=== PATIENT | female | born 1935 | race American Indian/Alaskan Native ===

== ENCOUNTER 2023-02-15 17:48 | Inpatient (IN) | payer OTHER, MEDICAID ==
[~2023-02-15] VITALS: Ht 165.1 cm; Wt 71.7 kg
--- NOTE | 2023-02-15 17:52 | NUR ---
PATIENT BIBA TO BED 2
[2023-02-15 18:05] VITALS: BP 169/69
[2023-02-15 18:26] LABS: BASOPHILS % (AUTO) 0.3 % (0.0-2.0); EOSINOPHILS % (AUTO) 0.1 % (0.0-4.0); HEMATOCRIT 38.2 % (36-48); HEMOGLOBIN 12.9 g/dL (12.0-16.0); LYMPHOCYTES # (AUTO) 0.4 K/uL (2.5-16.5); LYMPHOCYTES % (AUTO) 2.8 % (20.5-51.1); MEAN CORPUSCULAR HEMOGLOBIN 30 pg (27-31); MEAN CORPUSCULAR HGB CONC 34 g/dL (33-37); MEAN CORPUSCULAR VOLUME 87.6 fL (80-94); MONOCYTES # (AUTO) 0.4 K/uL (0.8-1.0); MONOCYTES % (AUTO) 2.4 % (1.7-9.3); NEUTROPHILS # (AUTO) 13.9 K/uL (1.8-7.7); NEUTROPHILS % (AUTO) 94.4 % (42.2-75.2); PLATELET COUNT (AUTO) 281 K/uL (140-450); RED BLOOD CELL COUNT(AUTO) 4.36 MIL/uL (4.20-5.40); RED CELL DISTRIBUTION WIDTH 15.4 % (11.6-13.7); WHITE BLOOD COUNT (AUTO) 14.8 K/uL (4.8-10.8)
[2023-02-15 18:50] LABS: ALBUMIN 3.8 g/dL (3.4-5.0); ANION GAP 13.9 (8-16); ASPARTATE AMINOTRANSFERASE 24 U/L (15-37); CARBON DIOXIDE 27.6 mmol/L (21-32); CHLORIDE 101 mmol/L (98-107); CREATININE 1.3 mg/dL (0.6-1.3); GLUCOSE 117 mg/dL (74-106); LIPASE 72 U/L (73-393); POTASSIUM 3.5 mmol/L (3.5-5.1); SODIUM SERUM 139 mmol/L (136-145); TOTAL BILIRUBIN 1.1 mg/dL (0.0-1.0); UREA NITROGEN, BLOOD 26 mg/dL (7-18)
--- NOTE | 2023-02-15 19:35 | NUR ---
Pt taken to CT
[2023-02-15 20:23] LABS: BILIRUBIN,URINE NEGATIVE (NEGATIVE); BLOOD, URINE 2+ (NEGATIVE); COLOR,URINE YELLOW (YELLOW); LEUKOCYTE ESTERASE ,URINE 2+ (NEGATIVE); NITRITE, URINE POSITIVE (NEGATIVE); PH,URINE 7.5 (5.0-9.0); UGLUCOSE NEGATIVE (NEGATIVE)
[2023-02-15 20:30] LABS: APPEARANCE,URINE HAZY (CLEAR)
[2023-02-15 20:38] LABS: RBC,URINE 11-20 (MOD) /HPF (0-5); WBC,URINE TOO MANY TO COUNT /HPF (0-5)
[2023-02-15] MEDS ORDERED: KETOROLAC 15 MG/ML VIAL IVP ONE (21:00)
[2023-02-15] MEDS ORDERED: cefTRIAXone 1,000 MG VIAL ONE (21:29)
[2023-02-15] MEDS ORDERED: ALBUTEROL 0.083% 2.5 MG/3 ML NEBU INH PRN (21:45)
[2023-02-15] MEDS ORDERED: MORPHINE SULFATE 2 MG/ML SYR IVP PRN (21:50)
[2023-02-15] MEDS ORDERED: ZOLPIDEM 10 MG TAB PO PRN (21:50)
[2023-02-15] MEDS ORDERED: ACETAMINOPHEN 325 MG TAB PO PRN (21:50)
[2023-02-15] MEDS ORDERED: DOCUSATE SODIUM 100 MG GELCAP PO PRN (21:50)
[2023-02-15] MEDS ORDERED: POTASSIUM CHLORIDE 10 MEQ TABER PO PRN (21:50)
[2023-02-15] MEDS ORDERED: ONDANSETRON 4 MG/2 ML VIAL IVP PRN (21:50)
[2023-02-15] MEDS ORDERED: NACL 0.9% 1,000 ML IV ONE (21:55)
--- NOTE | 2023-02-15 22:40 | NUR ---
Pt c/o anxiety and discomfort, son by bedside translating. prn ativan given as ordered.
[2023-02-15] MEDS: LORazepam 2 MG/ML VIAL IVP PRN (22:48)
--- NOTE | 2023-02-16 00:05 | NUR ---
Report given to Erasmo WALTON for transfer of care
--- NOTE | 2023-02-16 00:10 | NUR ---
RECEIVED PATIENT FROM ER NURSE VIA [facility] FOR CONTINUITY OF CARE. PIV INTACT AND PATENT, PATIENT IN NO DISTRESS
[2023-02-16 04:00] VITALS: BP 132/62
[2023-02-16 05:25] LABS: BASOPHILS # (AUTO) 0.1 K/uL (0.00-0.22); BASOPHILS % (AUTO) 0.3 % (0.0-2.0); HEMATOCRIT 33.7 % (36-48); HEMOGLOBIN 11.3 g/dL (12.0-16.0); LYMPHOCYTES # (AUTO) 0.4 K/uL (2.5-16.5); LYMPHOCYTES % (AUTO) 1.9 % (20.5-51.1); MEAN CORPUSCULAR HEMOGLOBIN 30 pg (27-31); MEAN CORPUSCULAR HGB CONC 34 g/dL (33-37); MEAN CORPUSCULAR VOLUME 87.7 fL (80-94); MONOCYTES # (AUTO) 0.5 K/uL (0.8-1.0); MONOCYTES % (AUTO) 2.3 % (1.7-9.3); NEUTROPHILS # (AUTO) 20.5 K/uL (1.8-7.7); NEUTROPHILS % (AUTO) 95.5 % (42.2-75.2); PLATELET COUNT (AUTO) 201 K/uL (140-450); RED BLOOD CELL COUNT(AUTO) 3.84 MIL/uL (4.20-5.40); RED CELL DISTRIBUTION WIDTH 15.1 % (11.6-13.7); WHITE BLOOD COUNT (AUTO) 21.4 K/uL (4.8-10.8)
[2023-02-16 06:03] LABS: ANION GAP 15.5 (8-16); CARBON DIOXIDE 24.9 mmol/L (21-32); CHLORIDE 105 mmol/L (98-107); CREATININE 1.5 mg/dL (0.6-1.3); GLUCOSE 110 mg/dL (74-106); POTASSIUM 3.4 mmol/L (3.5-5.1); SODIUM SERUM 142 mmol/L (136-145); UREA NITROGEN, BLOOD 27 mg/dL (7-18)
--- NOTE | 2023-02-16 07:20 | NUR ---
ENDORSED PATIENT TO AM NURSE FOR CONTINUITY OF CARE.PT IS STABLE
[2023-02-16 08:00] VITALS: BP 108/51
--- NOTE | 2023-02-16 09:15 | NUR ---
PATIENT HAS BEEN SCREENED AND CATEGORIZED MODERATE NUTRITION RISK. PATIENT WILL BE SEEN WITHIN 3-5 DAYS OF ADMISSION. REVIEWED BY SHUN LAMAR RD
[2023-02-16] MEDS: TAMSULOSIN 0.4 MG CAP PO SCH (09:26)
[2023-02-16] MEDS: MAG SULF 2000 MG/WATER PREMIX 50 ML IV PRN (09:29)
--- NOTE | 2023-02-16 11:45 | NUR ---
DC PLANNING ATTEMPTED TO SEE PT AT BEDSIDE TO COMPLETE ASSESSMENT, HOWEVER, PT NOT IN ROOM. SW TO FOLLOW
[2023-02-16 12:00] VITALS: BP 123/56
--- NOTE | 2023-02-16 14:08 | NUR ---
AGUS ANTON CALLED FOR F/U PF PATIENT'S STATUS. PATIENT'S SON ([phone]) IS HERE AFTER UROLOGIST SEE PATIENT AND WANT RECEIVE UPDATE PATIENT TREATMENT CARE PLAN FROM PCP. DR. SHAY CONTACT AND LEFT DAUGHTER'S PHONE NUMBER ([phone]). WILL CONTINUE TO MONITOR PATIENT
--- NOTE | 2023-02-16 14:24 | NUR ---
PT. WITH LOW GONZALES SCALE AT MODERATE TO HIGH RISK, CONTINUE TO FOLLOW PRESSURE INJURY PREVENTION INTERVENTIONS. -POSITIONING: TURN AND REPOSITION PATIENT Q 2H OR SOONER USE PILLOWS TO KEEP BONY PROMINENCES FROM DIRECT CONTACT WITH SURFACES USE REPOSITIONING WEDGES TO PROVIDE 30-DEGREE ANGLE FOR SIDE LYING POSITIONS OFFLOADING OR FOAM DRESSING TO ALL TUBING TO PREVENT MEDICAL DEVICES RELATED PRESSURE INJURY -RE-EVALUATING AND MANAGING INCONTINENCE MONITOR SKIN CONDITION DURING POSITION CHANGE DO NOT MASSAGE REDNESS, BONY PROMINENCES FREQUENT MARELY-CARE AND PROVIDE BARRIER CREAMS PRN IF SOILING MOISTURE CONTROL BY OFFER BED SANTILLAN/URINAL /ABSORBENT PAD TO WICK AND HOLD MOISTURE KEEP SKIN DRY AND PROTECT FROM FRICTION -MANAGE FRICTION/SHEAR/MOBILITY KEEP HOB AT THE LOWEST LEVEL OF ELEVATION NO MORE THAN 30 DEGREE UNLESS OTHERWISE CONTRAINDICATED USE LIFT SHEET OR TRANSFER DEVICE TO MOVE PATIENT AND PREVENT LATERAL SHEER. PROTECT HEELS, ELBOWS BONY PROMINENCES WITH SKIN BERRIES OR FOAM DRESSING IF EXPOSED TO FRICTION OFFLOAD BILATERAL HEELS BY PLACING PILLOWS UNDER CALVES AT ALL TIMES, UNLESS OTHERWISE CONTRAINDICATED -PRESSURE REDISTRIBUTION SURFACE THERAPY EDWARDO ISOFLEX MATTRESS -NUTRITION: PLEASE FOLLOW RD RECOMMENDATIONS AND OFFER NUTRITION SUPPLEMENTS IF ORDERED. PLEASE CONTACT WOUND CARE NURSE FOR ANY QUESTION AND CHANGE OF WOUND CONDITION.
[2023-02-16 16:00] VITALS: BP 138/69
--- NOTE | 2023-02-16 19:45 | NUR ---
ENDORSE PATIENT IN STABLE CONDITION TO PM SHIFT NURSE AND REMIND NURSE THAT PATIENT HAS PULL IV OUT X2 NOW. NEW IV SIT AT L. FOREARM
--- NOTE | 2023-02-16 19:50 | NUR ---
PATIENT IN BED RESTING COMFORTABLY WITH DAUGHTER AT BEDSIDE. NO SOB NOTED. RESPIRATION EVEN UNLABORED. IV ACCESS TO LEFT FOREARM SALINE LOCK. NO COMPLAINTS OF PAIN. CALL LIGHT WITHIN REACH. ALL SAFETY PRECAUTIONS ARE IN PLACE.
[2023-02-16 20:00] VITALS: BP 132/75
--- NOTE | 2023-02-16 21:58 | NUR ---
ADMINISTERED SCHEDULED DUE MEDICATION.
[2023-02-17] VITALS: BP 126/63
[2023-02-17 04:00] VITALS: BP 127/53
[2023-02-17 05:33] LABS: BASOPHILS % (AUTO) 0.1 % (0.0-2.0); EOSINOPHILS # (AUTO) 0.2 K/uL (0-0.4); EOSINOPHILS % (AUTO) 1.4 % (0.0-4.0); HEMATOCRIT 30.3 % (36-48); HEMOGLOBIN 10.1 g/dL (12.0-16.0); LYMPHOCYTES # (AUTO) 0.9 K/uL (2.5-16.5); LYMPHOCYTES % (AUTO) 5.5 % (20.5-51.1); MEAN CORPUSCULAR HEMOGLOBIN 30 pg (27-31); MEAN CORPUSCULAR HGB CONC 34 g/dL (33-37); MEAN CORPUSCULAR VOLUME 88.1 fL (80-94); MONOCYTES # (AUTO) 0.6 K/uL (0.8-1.0); MONOCYTES % (AUTO) 3.7 % (1.7-9.3); NEUTROPHILS % (AUTO) 89.3 % (42.2-75.2); PLATELET COUNT (AUTO) 154 K/uL (140-450); RED BLOOD CELL COUNT(AUTO) 3.44 MIL/uL (4.20-5.40); RED CELL DISTRIBUTION WIDTH 15.7 % (11.6-13.7); WHITE BLOOD COUNT (AUTO) 15.7 K/uL (4.8-10.8)
[2023-02-17 06:25] LABS: ANION GAP 12.9 (8-16); CARBON DIOXIDE 23.3 mmol/L (21-32); CHLORIDE 109 mmol/L (98-107); CREATININE 1.2 mg/dL (0.6-1.3); GLUCOSE 92 mg/dL (74-106); POTASSIUM 4.2 mmol/L (3.5-5.1); SODIUM SERUM 141 mmol/L (136-145); UREA NITROGEN, BLOOD 32 mg/dL (7-18)
--- NOTE | 2023-02-17 07:01 | NUR ---
ALL NEEDS ATTENDED AND MET THROUGHOUT THE SHIFT.
--- NOTE | 2023-02-17 07:20 | NUR ---
got report from the night nurse, pt sleeping no [email or web address]
--- NOTE | 2023-02-17 07:20 | NUR ---
GAVE REPORT TO DAY SHIFT NURSE FOR CONTINUITY OF CARE.
[2023-02-17 08:00] VITALS: BP 122/47
[2023-02-17] MEDS: TAMSULOSIN 0.4 MG CAP PO SCH (08:36)
[2023-02-17 12:00] VITALS: BP 109/79
[2023-02-17] MEDS: NACL 0.9% 1,000 ML IV SCH (12:45)
--- NOTE | 2023-02-17 13:05 | NUR ---
DC PLANNING ASSESSMENT COMPLETE PLEASE REFER TO ASSESSMENT FOR ADDITIONAL DETAILS [facility], PT'S SON, REPORTS TENTATIVE DC PLAN IS FOR PT TO RETURN TO [facility], WHEN MEDICALLY STABLE. Addendum: 02/18/23 at 0834 by Avis Brown SS Amended: Links added.
[2023-02-17 16:00] VITALS: BP 115/57
--- NOTE | 2023-02-17 19:35 | NUR ---
RECEIVED PATIENT IN BED AWAKE. NO SOB NOTED. CALL LIGHT ON EASY REACH. SAFETY MEASURES IN PLACE. IVF NS INFUSING 75ML/HR IN THE LEFT FOREARM. DENIES PAIN.
[2023-02-17 20:00] VITALS: BP 147/66
--- NOTE | 2023-02-17 21:20 | NUR ---
IV INFILTRATED. STARTED A NEW IV LINE TO LEFT FOREARM 22 GAUGE. TOLERATED WELL.
--- NOTE | 2023-02-17 21:37 | NUR ---
SCHEDULED MEDICATION ADMINISTERED.
[2023-02-17] MEDS: LORazepam 2 MG/ML VIAL IVP PRN (22:46)
--- NOTE | 2023-02-17 22:46 | NUR ---
PATIENT IS FEELING ANXIOUS, MEDICATED.
[2023-02-18] VITALS: BP 148/60
[2023-02-18] MEDS: NACL 0.9% 1,000 ML IV SCH ×2 (02:36→14:04)
[2023-02-18 04:00] VITALS: BP 154/64
[2023-02-18 05:58] LABS: BASOPHILS % (AUTO) 0.4 % (0.0-2.0); EOSINOPHILS # (AUTO) 0.2 K/uL (0-0.4); EOSINOPHILS % (AUTO) 2.1 % (0.0-4.0); HEMATOCRIT 32.8 % (36-48); HEMOGLOBIN 11.1 g/dL (12.0-16.0); LYMPHOCYTES # (AUTO) 0.5 K/uL (2.5-16.5); LYMPHOCYTES % (AUTO) 5.6 % (20.5-51.1); MEAN CORPUSCULAR HEMOGLOBIN 30 pg (27-31); MEAN CORPUSCULAR HGB CONC 34 g/dL (33-37); MEAN CORPUSCULAR VOLUME 88.2 fL (80-94); MONOCYTES # (AUTO) 0.4 K/uL (0.8-1.0); MONOCYTES % (AUTO) 4.7 % (1.7-9.3); NEUTROPHILS # (AUTO) 8.2 K/uL (1.8-7.7); NEUTROPHILS % (AUTO) 87.2 % (42.2-75.2); PLATELET COUNT (AUTO) 165 K/uL (140-450); RED BLOOD CELL COUNT(AUTO) 3.71 MIL/uL (4.20-5.40); RED CELL DISTRIBUTION WIDTH 15.5 % (11.6-13.7); WHITE BLOOD COUNT (AUTO) 9.4 K/uL (4.8-10.8)
[2023-02-18 06:45] LABS: ANION GAP 13.9 (8-16); CARBON DIOXIDE 23.6 mmol/L (21-32); CHLORIDE 108 mmol/L (98-107); GLUCOSE 106 mg/dL (74-106); POTASSIUM 3.5 mmol/L (3.5-5.1); SODIUM SERUM 142 mmol/L (136-145); UREA NITROGEN, BLOOD 23 mg/dL (7-18)
--- NOTE | 2023-02-18 07:12 | NUR ---
GAVE REPORT TO MORNING SHIFT NURSE FOR CONTINUITY OF CARE.
--- NOTE | 2023-02-18 07:30 | NUR ---
RECEIVED REPORT FROM CAMP[employer] CLEANING ATTENDANT NURSE POC DISCUSSED. PT SLEEPING IN BED ON ROOM AIR WITH CHEST RISING AND FALLING EVEN AND UNLABORED. NO ACUTE S/S OF DISTRESS, ALL SAFETY MEASURES IN PLACE. CALL LIGHT WITHIN REACH.
[2023-02-18 08:00] VITALS: BP 153/68
[2023-02-18] MEDS: TAMSULOSIN 0.4 MG CAP PO SCH (09:32)
[2023-02-18 12:00] VITALS: BP 136/74
[2023-02-18] MEDS: MAG SULF 2000 MG/WATER PREMIX 50 ML IV PRN (13:14)
--- NOTE | 2023-02-18 13:45 | NUR ---
PT BROUGHT BACK FROM CT IN STABLE CONDITION, SON AT BEDSIDE. ALL SAFETY MEASURES IN PLACE, CALL LIGHT WITHIN REACH.
[2023-02-18] MEDS ORDERED: LEVO-481 PO (15:58)
[2023-02-18 16:00] VITALS: BP 157/64
--- NOTE | 2023-02-18 16:02 | NUR ---
RECEIVED ORDER FOR PATIENT TO DISCHARGE BACK TO [facility] TO CONTINUE OF CARE. FAXED ALL PAPERWORK TO [facility] . SPOKE LOLA FROM [facility] WHO IS JUST WAITING FOR FAX TO COME IN TO GIVE ACCEPTANCE INFORMATION. WILL FOLLOW UP WHEN FAX CONFIRMATION IS RECEIVED. Addendum: 02/18/23 at 1634 by ALVIN ONEIL CM RECEIVED CALL FROM LOLA AT [phone] LOCATED [address] [address]. PATIENT WILL BE GOING TO ROOM [address] UNDER DR CORBIN.CALL FOR REPORT # . TRANSPORT WILL BE PAID BY [facility] TRANSPORT SET UP WITH NILAM FROM [facility] TRANSPORTATION WITH A 1800 CLINICAL OFFICE TECHNICIAN TIME. NURSE MANUEL AND DAUGHTER CANDELARIA AWARE OF THE ABOVE INFORMATION. Addendum: 02/18/23 at 1641 by ALVIN ONEIL CM TRANSPORTATION CANCELED WITH [facility] AND SET UP WITH [facility] WITH A [id number].
--- NOTE | 2023-02-18 16:40 | NUR ---
FULL REPORT GIVEN TO KEMI FROM [facility] REGARDING PTS RETURN TO 108B. POC DISCUSSED. NEW PRESCRIPTION PROVIDED. ALL QUESTIONS ANSWERED. RENETTABAMAYTE, SON CALLED NOTIFIED OF PT BEING DISCHARGED. ALL QUESTIONS ANSWERED.
--- NOTE | 2023-02-18 18:47 | NUR ---
PT READY FOR NURSING STAFF DEVELOPMENT COORDINATOR FROM TRANSPORTATION. DAUGHTER AT BEDSIDE.
== END 2023-02-18 20:40 | DRG 871 ==
LOC: MED 17:48 → MTU 21:50
PROVIDERS: ADMIT Family Medicine; ATTEND Family Medicine
DX: A41.9 Sepsis, unspecified organism (principal); N17.0 Acute kidney failure with tubular necrosis; N39.0 Urinary tract infection, site not specified; N13.2 Hydronephrosis with renal and ureteral calculous obstruction; Z20.822 Contact with and (suspected) exposure to COVID-19; E87.6 Hypokalemia; D64.9 Anemia, unspecified; Z88.8 Allergy status to other drugs, medicaments and biological substances; G20 Parkinson's disease
CPT/HCPCS: 36415; 80048; 80053; 81001; 83690; 83735; 85025; 87081; 87086; 94640; 96365; 96375; 99285; J0696; J1885; J2060; J3475; J7060; J7613; Q9967